=== PATIENT | female | born 2000 | race Asian ===

== ENCOUNTER 2022-08-20 13:10 | Emergency (ER) | payer BC ==
[2022-08-20 14:08] LABS: CHLORIDE,CL 104 mmol/L (98-107); SODIUM,NA 139 mmol/L (136-145)
[2022-08-20 14:10] LABS: ANION GAP 11.9 mmol/L (5-15); ESTIMATED GFR 108 mL/min (>=60)
== END 2022-08-20 14:20 | disposition home or self-care (01) ==
LOC: VM.ED 13:10
DX: R07.89 Other chest pain (principal)
CPT/HCPCS: 36415; 71046; 80053; 82550; 84484; 85025; 86140; 93005; 99285